=== PATIENT | female | born 1960 | race Caucasian/White ===

== ENCOUNTER 2016-09-14 05:49 | Day surgery (SDC) | payer OTHER ==
[2016-09-11 15:29] LABS: URINE MICRO REVIEW NEEDED? NO; URINE SOURCE CLEAN CATCH
[2016-09-11 15:43] LABS: HEMATOCRIT 43.6 % (37.0-47.0); HEMOGLOBIN 14.8 g/dL (12.0-16.0); MCH 31.6 PG (27-31); MCHC 33.9 g/dL (33-37); MCV 93.2 FL (81-99); MPV 10.2 FL (7.4-10.4); RBC 4.68 XMIL (4.2-5.4)
[2016-09-11 15:52] LABS: BILIRUBIN URINE NEGATIVE (NEGATIVE); BLOOD URINE NEGATIVE (NEGATIVE); COLOR STRAW; GLUCOSE URINE NEGATIVE (NEGATIVE); LEUKOCYTES URINE NEGATIVE (NEGATIVE); NITRITE URINE NEGATIVE (NEGATIVE); PROTEIN URINE NEGATIVE (NEGATIVE); SP GRAVITY URINE 1.006; TURBIDITY URINE CLEAR (CLEAR); UROBILINOGEN URINE NORMAL (NORMAL)
[2016-09-11 15:53] LABS: UR EPITHELIAL CELLS <10 /HPF (<10); URINE BACTERIA NEGATIVE /HPF; URINE RBC <10 /HPF (<10); URINE WBC <10 /HPF (<10)
[2016-09-14] MEDS ORDERED: NS 250 ML ONE (06:18)
[2016-09-14] MEDS ORDERED: LR 1,000 ML ONE ×2 (06:18→12:06)
[2016-09-14] MEDS ORDERED: METHYLENE BLUE 1% ONE (06:18)
[2016-09-14] MEDS ORDERED: REGLAN ONE (06:19)
[2016-09-14] MEDS ORDERED: BACITRACIN ONE (06:19)
[2016-09-14] MEDS ORDERED: PEPCID ONE (06:19)
[2016-09-14] MEDS ORDERED: LOVENOX ONE (06:19)
[2016-09-14] MEDS ORDERED: EXPAREL 1.3% ONE (06:19)
[2016-09-14] MEDS ORDERED: TRANSDERM-SCOP ONE (06:19)
[2016-09-14] MEDS ORDERED: KEFZOL 2 GM/D5W 50 ML ONE (06:19)
[2016-09-14] MEDS: KEFZOL 1 GM/D5W 50 ML ONE ×2 (10:56→11:20)
[2016-09-14] MEDS ORDERED: NORCO-5 ONE ×2 (12:50→15:06)
[2016-09-14] MEDS ORDERED: VERSED ONE (14:46)
[2016-09-14] MEDS ORDERED: FENTANYL ONE (14:46)
[2016-09-14] MEDS ORDERED: DIPRIVAN 1% ONE (14:46)
[2016-09-14] MEDS ORDERED: NEOSTIGMINE ONE (15:45)
[2016-09-14] MEDS ORDERED: ZOFRAN ONE ×2 (15:46→16:29)
[2016-09-14] MEDS ORDERED: NEO-SYNEPHRINE ONE (15:46)
[2016-09-14] MEDS ORDERED: ROBINUL ONE (15:46)
[2016-09-14] MEDS ORDERED: XYLOCAINE-MPF 2% ONE (15:46)
[2016-09-14] MEDS ORDERED: LR 3,000 ML ONE (15:46)
[2016-09-14] MEDS ORDERED: DECADRON ONE (15:46)
[2016-09-14] MEDS ORDERED: QUELICIN (DOSE) ONE (15:46)
[2016-09-14] MEDS ORDERED: NORCO-10 ONE (17:17)
[2016-09-14 17:51] VITALS: BP 141/78
--- NOTE | 2016-09-14 17:56 | OPERATIVE NOTE ---
PROCEDURE DATE: 09/14/2016 PROCEDURE: Cosmetic abdominoplasty. SURGEON: Dr. Aki Garcia MD ICD-10 DIAGNOSIS CODE: Z-41.1, cosmetic surgery CPT CODE: 76374-L, cosmetic abdominoplasty. INDICATION FOR PROCEDURE: This patient is a 56-year-old white female who keeps herself in shape, but has some lower abdominal fat roll and a lot of flank fat that she does like. She is an excellent candidate for an abdominoplasty except that her epigastric skin is quite tight. We do not know if we can make the lowest optimal incision on her. She was seen in the office for informed consent for this procedure on 09/11/2016. At that point, she understood that she would have a cosmetic abdominoplasty and the goal of this procedure was to remove the extra skin on the bottom of her abdomen and do a muscle repair to tighten her muscles. She understood the risks include infection, blood loss, blood clots in legs, heart problems, lung problems, allergic reactions, or blood and serum collections in the operative sites that might require drainage. She understands that her abdomen incision will be from side to side and there could be asymmetry in the abdomen as there is with the unoperated abdomen. She knows where scars will be. She knows we have to bring her umbilicus through a new hole. She knows her lower abdominal sensation will be decreased for up to a year. She knows she can not lift anything strenuous for 8 weeks because of the muscle repair and she cannot have her breast reconstruction with a TRAM flap. She knows it is cosmetic surgery and does not go to her insurance company. DETAILS OF OPERATION: The patient was brought to the operating after she was marked in outpatient surgery in a standing position. She went to the operating room under general anesthesia and was prepped and draped. The corners were remarked with the patient in the flexed position, the upper incision was re-evaluated. It was then made with a knife and then dissected towards the costal margins and the xiphoid with an electrocautery. She was put in a flexed position and the ability to reach the lower tasneem that was marked in outpatient surgery was assessed. We moved the lower tasneem up about a centimeter and a half to not make it too tight in the middle. The lower incision was then made. The skin was removed from lateral to medial. The umbilicus cut around with a 15 blade. She had the muscles plicated in the midline. There was noted to be a small umbilical hernia. So the base of the umbilicus was opened the fat was resected somewhat and then the rest was reduced and then she was closed with a single #1 [id number] Vicryl stitch. The remainder of the muscle was then closed again. She was injected with Exparel and the muscles in the subcutaneous tissue for postoperative pain control. She was irrigated with bacitracin solution and Hemostasis was achieved with electrocautery. She was tacked closed over drains with silk sutures and then liposuction was done of the flanks. It was decided to bring the umbilicus through a round hole, so she was closed with 2-0 Polysorb interrupted sutures in the fat, a running 3-0 Polysorb deep dermal suture, followed by a running 4-0 Biosyn subcuticular stitch. The drains were secured with silk drain stitches. A [place] was made on the anterior abdomen to allow the umbilicus to come out. It was trimmed to make it shorter and then it was held in place with 5-0 Polysorb interrupted deep dermal sutures, then 5-0 nylon stitches. She tolerated the procedure well. The total amount of resection of the abdominal skin was 2457 g. She had 1150 mL of liposuction aspirated.
== END 2016-09-14 18:00 | disposition home or self-care (01) ==
LOC: OPS 05:49
PROVIDERS: ATTEND Surgery Plastic and Reconstructive Surgery
DX: Z41.1 Encounter for cosmetic surgery (principal)
CPT/HCPCS: 81001; 85027; 88300; 96374; C9290; J0330; J0690; J1100; J1650; J2250; J2370; J2405; J3010; J7050; J7120; Q9968; J2710